=== PATIENT | female | born 1935 | race Hispanic/Latino ===

== ENCOUNTER → 2018-01-25 | Outpatient (CLI) | payer MEDICARE ==
[~2018-01-25] MED LIST: ATOR10 PO; CA C1TAB95 PO; DONE23TA12 PO; FISH1CAP63 PO; LEVO75TA10 PO; MELO-106 PO; METF10004 PO; METF500T6 PO; VIT B12
== END | disposition home or self-care (01) ==
LOC: OIH 11:23
PROVIDERS: ATTEND Family Medicine
DX: Z68.32 Body mass index [BMI] 32.0-32.9, adult (principal)
CPT/HCPCS: 71046

== ENCOUNTER → 2018-10-07 | Outpatient (CLI) | payer MEDICARE ==
[~2018-10-07] MED LIST changes: +METF-444 PO; +METF-446 PO; -METF10004 PO; -METF500T6 PO
== END | disposition home or self-care (01) ==
LOC: OIH 10:28
PROVIDERS: ATTEND Family Medicine
DX: M25.561 Pain in right knee (principal); M25.562 Pain in left knee
CPT/HCPCS: 73560